=== PATIENT | female | born 1985 | race Hispanic/Latino ===

== ENCOUNTER 2021-02-13 15:08 | Emergency (ER) | payer OTHER ==
[~2021-02-13] VITALS: Ht 172.7 cm; Wt 68.9 kg
[2021-02-13 16:22] VITALS: BP 122/67
[2021-02-13] MEDS ORDERED: LACTATED RINGERS 1000ML 1,000 ML IV ONE ×2 (17:00→17:18)
[2021-02-13] MEDS ORDERED: PANTOPRAZOLE 40 MG/VIAL IVP ONE (17:00)
[2021-02-13] MEDS ORDERED: ONDANSETRON 4MG INJ IVP STA ×2 (17:09→21:22)
[2021-02-13] MEDS ORDERED: PANTOPRAZOLE 40 MG/VIAL ONE (17:15)
[2021-02-13] MEDS ORDERED: MORPHINE 4 MG SYG IV STA ×2 (17:23→21:22)
[2021-02-13 17:27] LABS: APPEARANCE,URINE Clear (CLEAR); BILIRUBIN,URINE Negative (NEGATIVE); COLOR,URINE Yellow (YELLOW); GLUCOSE, URINE (UA) Negative (NEGATIVE); KETONES,URINE 15 mg/dL (NEGATIVE); LEUKOCYTE ESTERASE ,URINE Negative (NEGATIVE); NITRATE,URINE Negative (NEGATIVE); OCCULT BLOOD,URINE Negative (NEGATIVE); PROTEIN,URINE Negative (NEGATIVE)
[2021-02-13 18:10] LABS: BASOPHILS % (AUTO) 0.5 % (0.0-5.0); EOSINOPHILS % (AUTO) 2.6 % (0.0-8.0); HEMATOCRIT 24.7 % (36-48); LYMPHOCYTES % (AUTO) 20.4 % (21.0-51.0); MEAN CORPUSCULAR HEMOGLOBIN 29.9 pg (27.0-33.0); MEAN CORPUSCULAR HGB CONC 33.2 g/dL (32.0-36.0); MEAN CORPUSCULAR VOLUME 90.1 fL (79-99); MONOCYTES % (AUTO) 6.2 % (3.0-13.0); NEUTROPHILS % (AUTO) 68.2 % (40.0-77.0); PLATELET COUNT (AUTO) 339 K/uL (130-400); RED BLOOD CELL COUNT(AUTO) 2.74 MIL/uL (4.00-5.50); RED CELL DISTRIBUTION WIDTH 13.1 % (11.0-15.5); WHITE BLOOD COUNT (AUTO) 17.2 K/uL (4.8-10.8)
[2021-02-13 18:28] LABS: CREATININE 0.6 mg/dL (0.5-1.5); POTASSIUM 3.8 mmol/L (3.5-5.1)
[2021-02-13 18:34] LABS: ALBUMIN 2.1 g/dL (3.5-5.0); BILIRUBIN,TOTAL 0.7 mg/dL (0.2-1.0); TOTAL PROTEIN, SERUM 5.4 g/dL (6.0-8.3)
[2021-02-13] MEDS ORDERED: IOHEXOL-350 75 ML VIAL IV ONE (18:36)
[2021-02-13 20:21] VITALS: BP 138/80
[2021-02-13] MEDS ORDERED: ONDA4TAB4 PO (21:20)
[2021-02-13] MEDS ORDERED: PANT40SU PO (21:20)
[2021-02-13] MEDS ORDERED: FERR325T22 PO (21:20)
[2021-02-13 21:57] VITALS: BP 118/70
== END 2021-02-13 22:12 | disposition home or self-care (01) ==
LOC: EDH 15:08
DX: D64.9 Anemia, unspecified (principal); R11.2 Nausea with vomiting, unspecified; R10.9 Unspecified abdominal pain; R42 Dizziness and giddiness; Z20.822 Contact with and (suspected) exposure to COVID-19; Z90.49 Acquired absence of other specified parts of digestive tract; Z79.899 Other long term (current) drug therapy; Z98.890 Other specified postprocedural states
CPT/HCPCS: 36415; 74176; 80053; 81003; 82150; 83605; 83690; 84703; 85025; 86850; 86900; 86901; 87040 ×2; 87088; 87635; 93005; 96361; 96374; 96375; 96376; 99285; C9113; C9803; J2270 ×2; J2405 ×2; J7120; Q9967